=== PATIENT | male | born 1945 | race Caucasian/White ===

== ENCOUNTER → 2019-07-15 11:37 | Outpatient (CLI) | payer MEDICARE, SELFPAY ==
--- NOTE | 2019-07-15 11:45 | US_ITS ---
PROCEDURE: US FNA OTHER CLINICAL INDICATION: LT PAROTID MASS COMPARISON: CT NECK SOFT TISSUE WO from 07/05/2019 TECHNIQUE: Following obtaining informed consent, using aseptic technique and local anesthesia with buffered lidocaine, fine-needle aspiration was performed of the nodule of interest using sonographic guidance. 3 passes were made into the nodule with a 25-gauge needle. Specimen was given to cytology. FINDINGS: A small amount of turbid thick appearing fluid was aspirated along with the FNA and was sent for culture and sensitivity. Those results are pending. CYTOLOGY: Atypical IMPRESSION: Uneventful FNA of the left parotid mass showing atypical FNA. Culture and sensitivity pending The patient tolerated the procedure well without evidence of immediate complications and left the ultrasound suite in stable condition. Dictated by: Miguel Sorto MD 07/20/2019 10:41 Electronically signed by Miguel Sorto MD in [place] 07/20/2019 10:41
== END ==
PROVIDERS: PCP Family Medicine; Visit Provider Otolaryngology
DX: D37.030 Neoplasm of uncertain behavior of the parotid salivary glands (principal)
CPT/HCPCS: 10005; 76942; 87070; 87205; 88173; 88305